=== PATIENT | female | born 1960 | race Hispanic/Latino ===

== ENCOUNTER 2021-01-25 09:30 | Emergency (ER) | payer BC ==
[~2021-01-25] VITALS: Ht 160 cm; Wt 78.0 kg
[2021-01-25] MEDS ORDERED: VENTOLIN HFA18 GM INH (09:52)
[2021-01-25] MEDS ORDERED: AZITHROMYCIN250 MG PO (09:52)
[2021-01-25] MEDS ORDERED: ONDANSETRON ODT4 MG PO (09:52)
[2021-01-25] MEDS ORDERED: PREDNISONE20 MG PO (09:52)
== END 2021-01-25 10:04 | disposition home or self-care (01) ==
LOC: FSED 09:35
DX: U07.1 COVID-19 (principal); R05 Cough
CPT/HCPCS: 99282